=== PATIENT | female | born 1955 | race Caucasian/White ===

== ENCOUNTER 2017-09-05 06:11 | Inpatient (IN) | payer MEDICARE, OTHER ==
[2017-09-05] MEDS ORDERED: OCTREOTIDE 50 MCG in SOD CHLORIDE 0.9% 25 ML IVPB (06:17)
[2017-09-05] MEDS: PANTOPRAZOLE IV 80 MG in SOD CHLORIDE 0.9% 100 ML IVPB (06:17)
[2017-09-05 06:42] LABS: ADD MAN DIFF? NO
[2017-09-05 06:52] LABS: OCCULT BLOOD STOOL NEGATIVE (NEGATIVE)
[2017-09-05] MEDS: SOD CHLORIDE 0.9% 1,000 ML IV (06:52)
[2017-09-05 07:04] LABS: WHITE BLOOD COUNT 19.1 10^3/ul (4.8-10.8)
[2017-09-05 07:04] LABS: BASOPHIL # 0.1 10^3/ul (0.0-0.1); BASOPHILS % 0.5 % (0.0-2.0); EOSINOPHILS # 0.4 10^3/ul (0.0-0.5); HEMATOCRIT 37.7 % (37.0-47.0); HEMOGLOBIN 13.1 g/dl (12.0-16.0); LYMPHOCYTES # 3.6 10^3/ul (0.8-2.9); MEAN CORPUSCULAR HEMOGLOBIN 32.3 pg (29.0-33.0); MEAN CORPUSCULAR HGB CONC 34.7 g/dl (32.0-37.0); MEAN CORPUSCULAR VOLUME 93.1 fl (82.0-101.0); MEAN PLATELET VOLUME 9.2 fl (7.4-10.4); MONOCYTE # 1.1 10^3/ul (0.3-0.9); MONOCYTES % 5.5 % (0.0-11.0); NEUTROPHIL # 13.8 10^3/ul (1.6-7.5); NEUTROPHILS % 72.3 % (39.0-77.0); PLATELET COUNT 322 10^3/UL (140-415); RED BLOOD COUNT 4.05 10^6/ul (4.20-5.40); RED CELL DISTRIBUTION WIDTH 15.2 % (11.5-14.5)
[2017-09-05 07:13] LABS: INR 0.93; PROTIME 12.5 Sec (11.9-14.9)
[2017-09-05 07:14] LABS: PARTIAL THROMBOPLASTIN TIME 29.6 Sec (25.0-35.0)
[2017-09-05 07:18] LABS: ALANINE AMINOTRANSFERASE 35 IU/L (13-69); ALBUMIN 3.8 g/dl (3.3-4.9); ALBUMIN/GLOBULIN RATIO 1.02; ALKALINE PHOSPHATASE 106 IU/L (42-121); ANION GAP 15 (8-16); ASPARTATE AMINO TRANSFERASE 22 IU/L (15-46); BLOOD UREA NITROGEN 16 mg/dl (7-20); CALCIUM 8.5 mg/dl (8.4-10.2); CARBON DIOXIDE 16 mmol/L (21-31); CHLORIDE 116 mmol/L (97-110); GLUCOSE 142 mg/dl (70-220); SODIUM 144 mmol/L (135-144); TOTAL PROTEIN 7.5 g/dl (6.1-8.1)
[2017-09-05 07:21] LABS: POTASSIUM 2.6 mmol/L (3.5-5.1)
[2017-09-05] MEDS ORDERED: POTASSIUM CHLORIDE 50 ML IVPB (07:30)
[2017-09-05] MEDS: POTASSIUM CHLORIDE 20 MEQ POWDER FOR ORAL SOLN PO (07:30)
[2017-09-05 07:41] LABS: TROPONIN-I < 0.012 ng/ml (0.00-0.12)
[2017-09-05 08:13] LABS: LIPASE 71 U/L (23-300)
[2017-09-05] MEDS: SODIUM CHLORIDE 0.9% 1L BAG IV* (08:25)
[2017-09-05] MEDS ORDERED: POTASSIUM CHLORIDE 30 MEQ in SOD CHLORIDE 0.9% 150 ML IV (08:30)
[2017-09-05 08:32] LABS: MAGNESIUM 2.6 mg/dl (1.7-2.5)
[2017-09-05] MEDS: MAGNESIUM SULFATE 2 GM/50 ML 50 ML IVPB (08:32)
[2017-09-05 09:01] LABS: ACETAMINOPHEN < 10.0 ug/ml (10.0-30.0)
[2017-09-05 09:01] LABS: ETHANOL < 10.0 mg/dl; SALICYLATE < 1.0 mg/dl (5.0-30.0)
[2017-09-05 09:09] LABS: VALPROATE < 10 ug/ml (50-100)
[2017-09-05] MEDS: POTASSIUM CHLORIDE 30 MEQ in DEXTROSE 5% 250 ML IV (09:27)
[2017-09-05 09:45] LABS: ADD UMIC YES; UR ASCORBIC ACID NEGATIVE (NEGATIVE); UR BILIRUBIN (Dip) NEGATIVE (NEGATIVE); UR BLOOD (Dip) NEGATIVE (NEGATIVE); UR CLARITY CLEAR (CLEAR); UR COLOR YELLOW (YELLOW); UR GLUCOSE (Dip) NEGATIVE (NEGATIVE); UR KETONES (Dip) NEGATIVE (NEGATIVE); UR LEUKOCYTE ESTERASE (Dip) NEGATIVE Leu/ul (NEGATIVE); UR NITRITE (Dip) NEGATIVE (NEGATIVE); UR RBC 0 /HPF (0-5); UR SPECIFIC GRAVITY (Dip) 1.013 (1.003-1.030); UR TOTAL PROTEIN (Dip) 1+ mg/dl (NEGATIVE); UR UROBILINOGEN (Dip) NEGATIVE (NEGATIVE); UR WBC 0 /HPF (0-5)
[2017-09-05] MEDS ORDERED: ONDANSETRON 4 MG INJ IV ×3 (10:00→16:30)
[2017-09-05] MEDS ORDERED: ACETAMINOPHEN 325 MG TAB PO ×2 (10:00)
[2017-09-05] MEDS: PANTOPRAZOLE 40 MG INJ IV ×2 (10:00→17:13)
[2017-09-05 10:03] LABS: BARBITURATES Negative (NEGATIVE); BENZODIAZEPINES Positive (NEGATIVE)
[2017-09-05 10:05] LABS: AMPHETAMINE/METHAMPHETAMINE Negative (NEGATIVE); CANNABINOIDS Negative (NEGATIVE); COCAINE Negative (NEGATIVE); OPIATES Negative (NEGATIVE)
[2017-09-05] MEDS: D5W-0.45 NACL + KCL 20 MEQ 1,000 ML IV ×2 (15:48→17:49)
[2017-09-05] MEDS ORDERED: HYDROCODONE/APAP (5/325) TAB PO (16:30)
[2017-09-05] MEDS ORDERED: LORAZEPAM 2 MG INJ IV (16:30)
[2017-09-05] MEDS: DEXTROSE 5%-0.45% NACL 1,000 ML IV (16:30)
[2017-09-05 17:10] LABS: CREATINE KINASE 386 IU/L (23-200)
[2017-09-05 17:12] LABS: ANION GAP 14 (8-16); BLOOD UREA NITROGEN 11 mg/dl (7-20); CALCIUM 7.1 mg/dl (8.4-10.2); CARBON DIOXIDE 15 mmol/L (21-31); CHLORIDE 122 mmol/L (97-110); CREATININE 0.67 mg/dl (0.44-1.00); GLUCOSE 155 mg/dl (70-220); MAGNESIUM 2.7 mg/dl (1.7-2.5); PHOSPHORUS 1.5 mg/dl (2.5-4.9); POTASSIUM 3.2 mmol/L (3.5-5.1); SODIUM 148 mmol/L (135-144)
[2017-09-05 17:24] LABS: CK INDEX 0.7; CK-MB 2.57 ng/ml (0.0-2.4); TROPONIN-I < 0.012 ng/ml (0.00-0.12)
[2017-09-05] MEDS: morphine 2 MG INJ IV (22:01)
[2017-09-05 22:42] LABS: CREATINE KINASE 451 IU/L (23-200)
[2017-09-05 22:56] LABS: CK INDEX 0.5; CK-MB 2.47 ng/ml (0.0-2.4); TROPONIN-I < 0.012 ng/ml (0.00-0.12)
[2017-09-06] MEDS: D5W-0.45 NACL + KCL 20 MEQ 1,000 ML IV ×4 (01:05→21:17)
[2017-09-06] MEDS: morphine 2 MG INJ IV ×4 (01:47→21:13)
[2017-09-06] MEDS: DEXTROSE 5%-0.45% NACL 1,000 ML IV ×2 (01:50→12:23)
[2017-09-06] MEDS: PANTOPRAZOLE 40 MG INJ IV ×2 (05:46→17:15)
[2017-09-06 06:58] LABS: ALANINE AMINOTRANSFERASE 37 IU/L (13-69); ALBUMIN/GLOBULIN RATIO 1.07; ALKALINE PHOSPHATASE 88 IU/L (42-121); ANION GAP 13 (8-16); ASPARTATE AMINO TRANSFERASE 26 IU/L (15-46); BILIRUBIN,INDIRECT 0.1 mg/dl (0-1.1); BILIRUBIN,TOTAL 0.1 mg/dl (0.2-1.3); BLOOD UREA NITROGEN 6 mg/dl (7-20); CARBON DIOXIDE 14 mmol/L (21-31); CHLORIDE 123 mmol/L (97-110); CHOL/HDL RATIO 2.3 RATIO; CHOLESTEROL 134 mg/dl (100-200); CREATININE 0.63 mg/dl (0.44-1.00); GLUCOSE 104 mg/dl (70-220); HDL CHOLESTEROL 57 mg/dl (35-98); LDL CHOLESTEROL,CALCULATED 62 mg/dl; MAGNESIUM 2.6 mg/dl (1.7-2.5); SODIUM 147 mmol/L (135-144); TOTAL PROTEIN 5.8 g/dl (6.1-8.1); TRIGLYCERIDES 73 mg/dl (0-149)
[2017-09-06 07:09] LABS: POTASSIUM 2.6 mmol/L (3.5-5.1)
[2017-09-06 08:09] LABS: ABNORMAL IP MESSAGE 1; HEMATOCRIT 32.4 % (37.0-47.0); HEMOGLOBIN 11.2 g/dl (12.0-16.0); MEAN CORPUSCULAR HEMOGLOBIN 32.5 pg (29.0-33.0); MEAN CORPUSCULAR HGB CONC 34.6 g/dl (32.0-37.0); MEAN CORPUSCULAR VOLUME 93.9 fl (82.0-101.0); MEAN PLATELET VOLUME 9.5 fl (7.4-10.4); PLATELET COUNT 290 10^3/UL (140-415); RED BLOOD COUNT 3.45 10^6/ul (4.20-5.40); RED CELL DISTRIBUTION WIDTH 15.9 % (11.5-14.5)
[2017-09-06 08:09] LABS: WHITE BLOOD COUNT 27.5 10^3/ul (4.8-10.8)
[2017-09-06 08:12] LABS: ADD MAN DIFF? YES; POSITIVE DIFF @See below
[2017-09-06 09:59] LABS: HEMOGLOBIN A1C 5.1 % (0-5.9)
[2017-09-06 10:03] LABS: ANISOCYTOSIS 1+ (0-0); BAND NEUTROPHILS #M 1.3 10^3/ul (0.0-0.6); BAND NEUTROPHILS % (M) 5 % (0-4); EOSINOPHILS # 0.3 10^3/ul (0.0-0.5); EOSINOPHILS % (M) 1 % (0.0-7.0); LYMPHOCYTES # 8.5 10^3/ul (0.8-2.9); LYMPHOCYTES #M 8.5 10^3/ul (0.8-2.9); LYMPHOCYTES % (M) 31 % (15-51); MONOCYTE # 1.4 10^3/ul (0.3-0.9); MONOCYTE #M 1.3 10^3/ul (0.3-0.9); MONOCYTES % (M) 5 % (0-11); SEG NEUT #M 16.3 10^3/ul (1.7-7.5); SEGMENTED NEUTROPHILS (M) % 58 % (39-77)
[2017-09-06] MEDS: POTASSIUM CHLORIDE (SR) 20 MEQ TAB PO (11:30)
[2017-09-06] MEDS: POTASSIUM CHLORIDE 100 ML IVPB ×3 (12:20→17:15)
[2017-09-06 15:59] LABS: ANION GAP 13 (8-16); BLOOD UREA NITROGEN 5 mg/dl (7-20); CALCIUM 7.2 mg/dl (8.4-10.2); CARBON DIOXIDE 16 mmol/L (21-31); CHLORIDE 121 mmol/L (97-110); CREATININE 0.59 mg/dl (0.44-1.00); GLUCOSE 123 mg/dl (70-220); POTASSIUM 4.1 mmol/L (3.5-5.1); SODIUM 146 mmol/L (135-144)
[2017-09-06] MEDS: PHENYTOIN 100 MG CAP PO ×2 (16:04→20:19)
[2017-09-06 16:33] LABS: IONIZED CALCIUM 1.1 mmol/L (1.1-1.4)
[2017-09-06 17:32] LABS: HEPATITIS B SURFACE ANTIGEN NEGATIVE (NEGATIVE)
[2017-09-06 18:00] LABS: HEPATITIS C VIRAL ANTIBODY REACTIVE (NEGATIVE)
[2017-09-06] MEDS: GABAPENTIN 300 MG CAP PO (20:20)
[2017-09-06] MEDS: ALPRAZOLAM 1 MG TAB PO (20:20)
[2017-09-06] MEDS: QUETIAPINE 100 MG TAB PO (20:20)
[2017-09-06] MEDS ORDERED: SERTRALINE 100 MG TAB PO (21:00)
[2017-09-06] MEDS: SERTRALINE 100 MG TAB PO (21:12)
[2017-09-06 22:11] LABS: RAPID PLASMA REAGIN NONREACTIVE (NR)
[2017-09-07] MEDS: PANTOPRAZOLE 40 MG INJ IV ×2 (05:32→17:58)
[2017-09-07] MEDS: D5W-0.45 NACL + KCL 20 MEQ 1,000 ML IV ×3 (06:20→16:53)
[2017-09-07 07:18] LABS: WHITE BLOOD COUNT 16.4 10^3/ul (4.8-10.8)
[2017-09-07 07:18] LABS: ADD MAN DIFF? NO; BASOPHIL # 0.1 10^3/ul (0.0-0.1); BASOPHILS % 0.5 % (0.0-2.0); EOSINOPHILS # 0.5 10^3/ul (0.0-0.5); EOSINOPHILS % 3.1 % (0.0-7.0); HEMOGLOBIN 10.9 g/dl (12.0-16.0); LYMPHOCYTES % 24.3 % (15.0-51.0); MEAN CORPUSCULAR HEMOGLOBIN 32.6 pg (29.0-33.0); MEAN CORPUSCULAR HGB CONC 34.1 g/dl (32.0-37.0); MEAN CORPUSCULAR VOLUME 95.8 fl (82.0-101.0); MEAN PLATELET VOLUME 9.3 fl (7.4-10.4); MONOCYTE # 1.3 10^3/ul (0.3-0.9); MONOCYTES % 8.1 % (0.0-11.0); NEUTROPHIL # 10.4 10^3/ul (1.6-7.5); NEUTROPHILS % 63.6 % (39.0-77.0); PLATELET COUNT 270 10^3/UL (140-415); RED BLOOD COUNT 3.34 10^6/ul (4.20-5.40); RED CELL DISTRIBUTION WIDTH 15.9 % (11.5-14.5)
[2017-09-07 07:31] LABS: ALANINE AMINOTRANSFERASE 32 IU/L (13-69); ALBUMIN 2.7 g/dl (3.3-4.9); ALBUMIN/GLOBULIN RATIO 0.84; ALKALINE PHOSPHATASE 77 IU/L (42-121); ANION GAP 13 (8-16); ASPARTATE AMINO TRANSFERASE 20 IU/L (15-46); BILIRUBIN,INDIRECT 0.1 mg/dl (0-1.1); BILIRUBIN,TOTAL 0.1 mg/dl (0.2-1.3); BLOOD UREA NITROGEN 4 mg/dl (7-20); CALCIUM 6.8 mg/dl (8.4-10.2); CARBON DIOXIDE 13 mmol/L (21-31); CHLORIDE 124 mmol/L (97-110); CREATININE 0.58 mg/dl (0.44-1.00); GLUCOSE 106 mg/dl (70-220); POTASSIUM 3.3 mmol/L (3.5-5.1); SODIUM 147 mmol/L (135-144); TOTAL PROTEIN 5.9 g/dl (6.1-8.1)
[2017-09-07] MEDS: GABAPENTIN 300 MG CAP PO ×3 (08:51→21:24)
[2017-09-07] MEDS: QUETIAPINE 100 MG TAB PO ×2 (08:51→21:24)
[2017-09-07] MEDS: PHENYTOIN 100 MG CAP PO ×3 (08:51→21:24)
[2017-09-07] MEDS: SERTRALINE 100 MG TAB PO ×2 (08:51→21:24)
[2017-09-07] MEDS: POTASSIUM CHLORIDE (SR) 20 MEQ TAB PO ×2 (11:53→15:34)
[2017-09-07] MEDS: CALCIUM CARBONATE 750 MG CHEW TAB PO ×2 (12:58→18:22)
[2017-09-07] MEDS: morphine 2 MG INJ IV ×2 (13:04→21:25)
[2017-09-07] MEDS: HYDROCODONE/APAP (5/325) TAB PO (18:29)
[2017-09-07] MEDS: ALPRAZOLAM 1 MG TAB PO (21:24)
[2017-09-08] MEDS: D5W-0.45 NACL + KCL 20 MEQ 1,000 ML IV ×2 (02:04→09:55)
[2017-09-08] MEDS: morphine 2 MG INJ IV (05:54)
[2017-09-08] MEDS: PANTOPRAZOLE 40 MG INJ IV ×2 (05:54→17:31)
[2017-09-08 06:29] LABS: ADD MAN DIFF? NO
[2017-09-08 06:35] LABS: BASOPHIL # 0.1 10^3/ul (0.0-0.1); BASOPHILS % 0.6 % (0.0-2.0); EOSINOPHILS # 0.5 10^3/ul (0.0-0.5); EOSINOPHILS % 2.7 % (0.0-7.0); HEMOGLOBIN 11.3 g/dl (12.0-16.0); LYMPHOCYTES # 2.8 10^3/ul (0.8-2.9); LYMPHOCYTES % 16.3 % (15.0-51.0); MEAN CORPUSCULAR HEMOGLOBIN 32.3 pg (29.0-33.0); MEAN CORPUSCULAR HGB CONC 33.2 g/dl (32.0-37.0); MEAN CORPUSCULAR VOLUME 97.1 fl (82.0-101.0); MEAN PLATELET VOLUME 9.1 fl (7.4-10.4); MONOCYTE # 1.3 10^3/ul (0.3-0.9); MONOCYTES % 7.5 % (0.0-11.0); NEUTROPHIL # 12.4 10^3/ul (1.6-7.5); NEUTROPHILS % 72.4 % (39.0-77.0); PLATELET COUNT 290 10^3/UL (140-415); RED CELL DISTRIBUTION WIDTH 15.9 % (11.5-14.5)
[2017-09-08 06:35] LABS: WHITE BLOOD COUNT 17.1 10^3/ul (4.8-10.8)
[2017-09-08 07:01] LABS: PHENYTOIN (DILANTIN) 4.4 ug/ml (10.0-20.0)
[2017-09-08 07:44] LABS: ALANINE AMINOTRANSFERASE 33 IU/L (13-69); ALBUMIN 3.4 g/dl (3.3-4.9); ALKALINE PHOSPHATASE 100 IU/L (42-121); ANION GAP 14 (8-16); ASPARTATE AMINO TRANSFERASE 22 IU/L (15-46); BILIRUBIN,INDIRECT 0.1 mg/dl (0-1.1); BILIRUBIN,TOTAL 0.1 mg/dl (0.2-1.3); BLOOD UREA NITROGEN 3 mg/dl (7-20); CALCIUM 7.2 mg/dl (8.4-10.2); CARBON DIOXIDE 14 mmol/L (21-31); CHLORIDE 123 mmol/L (97-110); CREATININE 0.56 mg/dl (0.44-1.00); GLUCOSE 102 mg/dl (70-220); POTASSIUM 3.9 mmol/L (3.5-5.1); SODIUM 147 mmol/L (135-144); TOTAL PROTEIN 6.8 g/dl (6.1-8.1)
[2017-09-08] MEDS: QUETIAPINE 100 MG TAB PO ×2 (08:54→20:48)
[2017-09-08] MEDS: CALCIUM CARBONATE 750 MG CHEW TAB PO ×3 (08:54→17:35)
[2017-09-08] MEDS: SERTRALINE 100 MG TAB PO ×2 (08:54→20:48)
[2017-09-08] MEDS: PHENYTOIN 100 MG CAP PO ×3 (08:54→20:48)
[2017-09-08] MEDS: GABAPENTIN 300 MG CAP PO ×3 (08:54→20:48)
[2017-09-08] MEDS ORDERED: ALPRAZOLAM 1 MG TAB PO (11:30)
[2017-09-08] MEDS: IBUPROFEN 400 MG TAB PO ×2 (15:10→20:48)
[2017-09-08] MEDS: DEXTROSE 5% 1,000 ML IV (17:29)
[2017-09-09] MEDS: DEXTROSE 5% 1,000 ML IV (04:47)
[2017-09-09] MEDS: PANTOPRAZOLE 40 MG INJ IV (04:47)
[2017-09-09] MEDS: SERTRALINE 100 MG TAB PO (08:24)
[2017-09-09] MEDS: CALCIUM CARBONATE 750 MG CHEW TAB PO (08:24)
[2017-09-09] MEDS: PHENYTOIN 100 MG CAP PO (08:24)
[2017-09-09] MEDS: GABAPENTIN 300 MG CAP PO (08:24)
[2017-09-09] MEDS: QUETIAPINE 100 MG TAB PO (08:31)
[2017-09-09 11:09] LABS: ADD MAN DIFF? NO
[2017-09-09 11:13] LABS: WHITE BLOOD COUNT 17.1 10^3/ul (4.8-10.8)
[2017-09-09 11:13] LABS: BASOPHIL # 0.1 10^3/ul (0.0-0.1); BASOPHILS % 0.6 % (0.0-2.0); EOSINOPHILS # 0.6 10^3/ul (0.0-0.5); EOSINOPHILS % 3.4 % (0.0-7.0); HEMATOCRIT 38.1 % (37.0-47.0); HEMOGLOBIN 12.4 g/dl (12.0-16.0); LYMPHOCYTES # 2.3 10^3/ul (0.8-2.9); LYMPHOCYTES % 13.4 % (15.0-51.0); MEAN CORPUSCULAR HEMOGLOBIN 32.4 pg (29.0-33.0); MEAN CORPUSCULAR HGB CONC 32.5 g/dl (32.0-37.0); MEAN CORPUSCULAR VOLUME 99.5 fl (82.0-101.0); MEAN PLATELET VOLUME 8.9 fl (7.4-10.4); MONOCYTES % 5.7 % (0.0-11.0); NEUTROPHIL # 13.1 10^3/ul (1.6-7.5); NEUTROPHILS % 76.4 % (39.0-77.0); PLATELET COUNT 361 10^3/UL (140-415); RED BLOOD COUNT 3.83 10^6/ul (4.20-5.40); RED CELL DISTRIBUTION WIDTH 15.4 % (11.5-14.5)
[2017-09-09 11:36] LABS: ANION GAP 16 (8-16); BLOOD UREA NITROGEN 4 mg/dl (7-20); CALCIUM 8.3 mg/dl (8.4-10.2); CARBON DIOXIDE 17 mmol/L (21-31); CHLORIDE 121 mmol/L (97-110); GLUCOSE 162 mg/dl (70-220); MAGNESIUM 2.5 mg/dl (1.7-2.5); PHOSPHORUS 1.8 mg/dl (2.5-4.9); SODIUM 150 mmol/L (135-144)
[2017-09-09 18:57] LABS: PTH CALCIUM 6.5 mg/dL (8.6-10.4)
[2017-09-10 08:31] LABS: PTH INTACT 157 pg/mL (14-64)
== END 2017-09-09 12:18 | disposition home or self-care (01) | DRG 377 ==
LOC: MS4 12:29 → E/R 06:11 → MS4 09:55
DX: K92.0 Hematemesis (principal); G92 Toxic encephalopathy; E87.2 Acidosis; E83.51 Hypocalcemia; E87.6 Hypokalemia; F17.200 Nicotine dependence, unspecified, uncomplicated; G40.909 Epilepsy, unspecified, not intractable, without status epilepticus; J44.9 Chronic obstructive pulmonary disease, unspecified; S20.212A Contusion of left front wall of thorax, initial encounter; T40.4X5A Adverse effect of other synthetic narcotics, initial encounter; W18.30XA Fall on same level, unspecified, initial encounter
CPT/HCPCS: 36415; 70450; 70486; 71045; 80048; 80053; 80061; 80164; 80185; 80306; 80307; 81001; 82270; 82306; 82330; 82550; 82553; 82962; 83036; 83605; 83690; 83735; 83970; 84100; 84484; 85025; 85610; 85730; 86592; 86803; 86850; 86900; 86901; 87040; 87086; 87340; 93005; 95819; 96374; 96375; 97110; 97116; 97163; 97530; 99291-25

== ENCOUNTER 2017-09-16 11:30 | Inpatient (IN) | payer MEDICARE, OTHER ==
[2017-09-16 12:12] LABS: ADD MAN DIFF? NO
[2017-09-16 12:16] LABS: WHITE BLOOD COUNT 20.1 10^3/ul (4.8-10.8)
[2017-09-16 12:16] LABS: BASOPHIL # 0.1 10^3/ul (0.0-0.1); BASOPHILS % 0.6 % (0.0-2.0); EOSINOPHILS # 0.1 10^3/ul (0.0-0.5); EOSINOPHILS % 0.3 % (0.0-7.0); HEMATOCRIT 41.7 % (37.0-47.0); LYMPHOCYTES # 2.9 10^3/ul (0.8-2.9); LYMPHOCYTES % 14.3 % (15.0-51.0); MEAN CORPUSCULAR HGB CONC 33.6 g/dl (32.0-37.0); MEAN CORPUSCULAR VOLUME 95.4 fl (82.0-101.0); MEAN PLATELET VOLUME 8.2 fl (7.4-10.4); MONOCYTE # 0.7 10^3/ul (0.3-0.9); MONOCYTES % 3.5 % (0.0-11.0); NEUTROPHILS % 79.9 % (39.0-77.0); PLATELET COUNT 878 10^3/UL (140-415); RED BLOOD COUNT 4.37 10^6/ul (4.20-5.40); RED CELL DISTRIBUTION WIDTH 15.2 % (11.5-14.5)
[2017-09-16] MEDS: SOD CHLORIDE 0.9% 1,000 ML IV ×3 (12:17→20:39)
[2017-09-16 12:41] LABS: ALANINE AMINOTRANSFERASE 43 IU/L (13-69); ALBUMIN 4.4 g/dl (3.3-4.9); ALBUMIN/GLOBULIN RATIO 0.83; ALKALINE PHOSPHATASE 169 IU/L (42-121); ANION GAP 25 (8-16); ASPARTATE AMINO TRANSFERASE 42 IU/L (15-46); BLOOD UREA NITROGEN 13 mg/dl (7-20); CALCIUM 9.4 mg/dl (8.4-10.2); CARBON DIOXIDE 12 mmol/L (21-31); CHLORIDE 114 mmol/L (97-110); CREATININE 0.72 mg/dl (0.44-1.00); GLUCOSE 120 mg/dl (70-220); LIPASE 104 U/L (23-300); POTASSIUM 3.5 mmol/L (3.5-5.1); SODIUM 147 mmol/L (135-144); TOTAL PROTEIN 9.7 g/dl (6.1-8.1)
[2017-09-16 12:57] LABS: ANISOCYTOSIS 1+ (0-0); BAND NEUTROPHILS % (M) 5 % (0-4); EOSINOPHILS % (M) 1 % (0-7); LYMPHOCYTES #M 2.6 10^3/ul (0.8-2.9); LYMPHOCYTES % (M) 13 % (15-51); MONOCYTE #M 0.4 10^3/ul (0.3-0.9); MONOCYTES % (M) 2 % (0-11); PLATELET ESTIMATE INCREASED; PLATELET MORPHOLOGY COMMENT @See below; POLYCHROMASIA 1+ (0-0); SEG NEUT #M 16.1 10^3/ul (1.6-7.5); SEGMENTED NEUTROPHILS (M) % 79 % (39-77)
[2017-09-16] MEDS: ONDANSETRON 4 MG INJ IV ×2 (13:07→18:56)
[2017-09-16] MEDS: PHENYTOIN 500 MG in SOD CHLORIDE 0.9% 100 ML IV (13:10)
[2017-09-16 14:20] LABS: ADD UMIC YES; UR ASCORBIC ACID NEGATIVE (NEGATIVE); UR BACTERIA FEW /HPF (NONE SEEN); UR BILIRUBIN (Dip) NEGATIVE (NEGATIVE); UR BLOOD (Dip) NEGATIVE (NEGATIVE); UR CLARITY CLEAR (CLEAR); UR COLOR YELLOW (YELLOW); UR GLUCOSE (Dip) NEGATIVE (NEGATIVE); UR KETONES (Dip) 2+ mg/dL (NEGATIVE); UR LEUKOCYTE ESTERASE (Dip) NEGATIVE Leu/ul (NEGATIVE); UR NITRITE (Dip) NEGATIVE (NEGATIVE); UR RBC 1 /HPF (0-5); UR SPECIFIC GRAVITY (Dip) 1.013 (1.003-1.030); UR TOTAL PROTEIN (Dip) 1+ mg/dl (NEGATIVE); UR UROBILINOGEN (Dip) NEGATIVE (NEGATIVE); UR WBC 3 /HPF (0-5)
[2017-09-16] MEDS: LORAZEPAM 2 MG INJ IV (14:44)
[2017-09-16] MEDS: METOCLOPRAMIDE 10 MG INJ IV (15:24)
[2017-09-16] MEDS ORDERED: ONDANSETRON 4 MG INJ IV (15:30)
[2017-09-16] MEDS ORDERED: ACETAMINOPHEN 325 MG TAB PO (15:30)
[2017-09-16] MEDS ORDERED: NACL 0.9% 3 ML SYG IV (16:30)
[2017-09-16] MEDS ORDERED: clonAZEPAM 0.5 MG TAB PO (16:30)
[2017-09-16] MEDS ORDERED: ALBUTEROL 0.083% (NEB) 2.5 MG/3 ML AMP HHN (17:00)
[2017-09-16 17:38] LABS: PHENYTOIN (DILANTIN) 12.1 ug/ml (10.0-20.0)
[2017-09-16 17:55] LABS: FREE T4 (FREE THYROXINE) 0.83 ng/dl (0.78-2.44)
[2017-09-16 20:28] LABS: AMPHETAMINE/METHAMPHETAMINE Negative (NEGATIVE); BARBITURATES Negative (NEGATIVE); CANNABINOIDS Negative (NEGATIVE); COCAINE Negative (NEGATIVE); OPIATES Negative (NEGATIVE)
[2017-09-16 20:39] LABS: BENZODIAZEPINES Positive (NEGATIVE)
[2017-09-16] MEDS: GABAPENTIN 300 MG CAP PO (20:39)
[2017-09-16] MEDS: PHENYTOIN 100 MG CAP PO (20:40)
[2017-09-16] MEDS: SERTRALINE 100 MG TAB PO (20:40)
[2017-09-16 21:24] LABS: HEMOGLOBIN A1C 4.9 % (0-5.9)
[2017-09-16] MEDS: QUETIAPINE 100 MG TAB PO (21:24)
[2017-09-17] MEDS: SOD CHLORIDE 0.9% 1,000 ML IV ×2 (04:30→08:49)
[2017-09-17 04:55] LABS: ADD MAN DIFF? NO
[2017-09-17 04:59] LABS: BASOPHIL # 0.1 10^3/ul (0.0-0.1); BASOPHILS % 0.6 % (0.0-2.0); EOSINOPHILS # 0.3 10^3/ul (0.0-0.5); EOSINOPHILS % 2.3 % (0.0-7.0); HEMATOCRIT 32.1 % (37.0-47.0); HEMOGLOBIN 10.5 g/dl (12.0-16.0); LYMPHOCYTES # 4.6 10^3/ul (0.8-2.9); LYMPHOCYTES % 30.9 % (15.0-51.0); MEAN CORPUSCULAR HEMOGLOBIN 32.2 pg (29.0-33.0); MEAN CORPUSCULAR HGB CONC 32.7 g/dl (32.0-37.0); MEAN CORPUSCULAR VOLUME 98.5 fl (82.0-101.0); MEAN PLATELET VOLUME 8.3 fl (7.4-10.4); MONOCYTES % 7.1 % (0.0-11.0); NEUTROPHIL # 8.6 10^3/ul (1.6-7.5); NEUTROPHILS % 58.1 % (39.0-77.0); PLATELET COUNT 630 10^3/UL (140-415); RED BLOOD COUNT 3.26 10^6/ul (4.20-5.40); RED CELL DISTRIBUTION WIDTH 15.7 % (11.5-14.5)
[2017-09-17 04:59] LABS: WHITE BLOOD COUNT 14.7 10^3/ul (4.8-10.8)
[2017-09-17 05:16] LABS: CHOL/HDL RATIO 5.5 RATIO; CHOLESTEROL 171 mg/dl (100-200); HDL CHOLESTEROL 31 mg/dl (35-98); LDL CHOLESTEROL,CALCULATED 114 mg/dl; MAGNESIUM 2.2 mg/dl (1.7-2.5); TRIGLYCERIDES 129 mg/dl (0-149)
[2017-09-17 05:16] LABS: PHOSPHORUS 2.2 mg/dl (2.5-4.9)
[2017-09-17 05:18] LABS: ALANINE AMINOTRANSFERASE 49 IU/L (13-69); ALBUMIN/GLOBULIN RATIO 0.85; ALKALINE PHOSPHATASE 94 IU/L (42-121); AMYLASE 44 U/L (11-123); ANION GAP 14 (8-16); ASPARTATE AMINO TRANSFERASE 37 IU/L (15-46); BLOOD UREA NITROGEN 7 mg/dl (7-20); CALCIUM 7.1 mg/dl (8.4-10.2); CARBON DIOXIDE 16 mmol/L (21-31); CHLORIDE 123 mmol/L (97-110); CREATININE 0.61 mg/dl (0.44-1.00); GLUCOSE 75 mg/dl (70-220); LIPASE 86 U/L (23-300); POTASSIUM 3.1 mmol/L (3.5-5.1); SODIUM 150 mmol/L (135-144); TOTAL PROTEIN 6.5 g/dl (6.1-8.1)
[2017-09-17 05:26] LABS: INR 1.09; PROTIME 14.2 Sec (11.9-14.9); PT RATIO 1.1
[2017-09-17 05:27] LABS: PARTIAL THROMBOPLASTIN TIME 30.9 Sec (25.0-35.0)
[2017-09-17 05:34] LABS: POSITIVE DIFF @See below
[2017-09-17] MEDS: PANTOPRAZOLE 40 MG INJ IV (06:05)
[2017-09-17] MEDS: SERTRALINE 100 MG TAB PO ×3 (08:48→20:35)
[2017-09-17] MEDS: QUETIAPINE 100 MG TAB PO ×2 (08:48→20:35)
[2017-09-17] MEDS: PHENYTOIN 100 MG CAP PO ×3 (08:49→20:34)
[2017-09-17] MEDS: GABAPENTIN 300 MG CAP PO ×3 (08:49→20:33)
[2017-09-17] MEDS: ACETAMINOPHEN 325 MG TAB PO ×2 (08:49→18:45)
[2017-09-17] MEDS: POTASSIUM PHOSPHATE 15 MM in SOD CHLORIDE 0.9% 250 ML IVPB (11:56)
[2017-09-17] MEDS: traMADol 50 MG TAB PO (13:41)
[2017-09-17] MEDS: SOD CHLORIDE 0.45% 1,000 ML IV ×2 (13:41→22:13)
[2017-09-17] MEDS: ONDANSETRON 4 MG INJ IV (18:41)
[2017-09-17] MEDS: clonAZEPAM 0.5 MG TAB PO (22:10)
[2017-09-18 05:52] LABS: ADD MAN DIFF? NO
[2017-09-18 06:03] LABS: WHITE BLOOD COUNT 14.1 10^3/ul (4.8-10.8)
[2017-09-18 06:03] LABS: BASOPHIL # 0.1 10^3/ul (0.0-0.1); BASOPHILS % 0.7 % (0.0-2.0); EOSINOPHILS # 0.4 10^3/ul (0.0-0.5); EOSINOPHILS % 2.5 % (0.0-7.0); HEMATOCRIT 32.8 % (37.0-47.0); HEMOGLOBIN 10.9 g/dl (12.0-16.0); LYMPHOCYTES # 3.5 10^3/ul (0.8-2.9); LYMPHOCYTES % 24.6 % (15.0-51.0); MEAN CORPUSCULAR HEMOGLOBIN 31.9 pg (29.0-33.0); MEAN CORPUSCULAR HGB CONC 33.2 g/dl (32.0-37.0); MEAN CORPUSCULAR VOLUME 95.9 fl (82.0-101.0); MEAN PLATELET VOLUME 8.3 fl (7.4-10.4); MONOCYTE # 1.2 10^3/ul (0.3-0.9); MONOCYTES % 8.4 % (0.0-11.0); NEUTROPHIL # 8.9 10^3/ul (1.6-7.5); NEUTROPHILS % 63.2 % (39.0-77.0); PLATELET COUNT 565 10^3/UL (140-415); RED BLOOD COUNT 3.42 10^6/ul (4.20-5.40); RED CELL DISTRIBUTION WIDTH 15.4 % (11.5-14.5)
[2017-09-18] MEDS: PANTOPRAZOLE 40 MG INJ IV ×2 (06:05→17:47)
[2017-09-18 06:59] LABS: MAGNESIUM 2.1 mg/dl (1.7-2.5)
[2017-09-18 06:59] LABS: PHOSPHORUS 1.9 mg/dl (2.5-4.9)
[2017-09-18 07:00] LABS: ALANINE AMINOTRANSFERASE 48 IU/L (13-69); ALBUMIN 2.9 g/dl (3.3-4.9); ALBUMIN/GLOBULIN RATIO 0.82; ALKALINE PHOSPHATASE 101 IU/L (42-121); ANION GAP 15 (8-16); ASPARTATE AMINO TRANSFERASE 29 IU/L (15-46); BLOOD UREA NITROGEN 3 mg/dl (7-20); CARBON DIOXIDE 15 mmol/L (21-31); CHLORIDE 119 mmol/L (97-110); CREATININE 0.53 mg/dl (0.44-1.00); GLUCOSE 101 mg/dl (70-220); SODIUM 146 mmol/L (135-144); TOTAL PROTEIN 6.4 g/dl (6.1-8.1)
[2017-09-18 07:03] LABS: POTASSIUM 2.6 mmol/L (3.5-5.1)
[2017-09-18] MEDS: GABAPENTIN 300 MG CAP PO ×3 (09:00→21:51)
[2017-09-18] MEDS: SOD CHLORIDE 0.45% 1,000 ML IV ×2 (09:00→12:26)
[2017-09-18] MEDS: POTASSIUM CHLORIDE 100 ML IVPB ×3 (09:08→13:00)
[2017-09-18] MEDS: clonAZEPAM 0.5 MG TAB PO ×2 (09:08→21:51)
[2017-09-18] MEDS: QUETIAPINE 100 MG TAB PO ×2 (09:09→21:52)
[2017-09-18] MEDS: PHENYTOIN 100 MG CAP PO ×3 (09:09→21:50)
[2017-09-18] MEDS: SERTRALINE 100 MG TAB PO ×3 (09:09→21:52)
[2017-09-18] MEDS: ONDANSETRON 4 MG INJ IV ×3 (09:20→22:03)
[2017-09-18] MEDS: INFLUENZA VIRUS VACCINE 0.5 ML SYG IM* (09:20)
[2017-09-18 12:52] LABS: POTASSIUM 4.3 mmol/L (3.5-5.1)
[2017-09-18] MEDS: MIDAZOLAM 1 MG/ML 2 ML INJ (15:28)
[2017-09-18] MEDS: PROPOFOL 20 ML (15:28)
[2017-09-18] MEDS: LIDOCAINE 2% (SDV) 5 ML INJ (15:28)
[2017-09-18] MEDS: LORAZEPAM 2 MG INJ IV (22:03)
[2017-09-19] MEDS: SOD CHLORIDE 0.45% 1,000 ML IV (02:45)
[2017-09-19] MEDS: PANTOPRAZOLE 40 MG INJ IV ×2 (04:52→17:30)
[2017-09-19 08:00] LABS: WHITE BLOOD COUNT 10.6 10^3/ul (4.8-10.8)
[2017-09-19 08:00] LABS: HEMATOCRIT 33.6 % (37.0-47.0); HEMOGLOBIN 11.3 g/dl (12.0-16.0); MEAN CORPUSCULAR HEMOGLOBIN 32.5 pg (29.0-33.0); MEAN CORPUSCULAR HGB CONC 33.6 g/dl (32.0-37.0); MEAN CORPUSCULAR VOLUME 96.6 fl (82.0-101.0); MEAN PLATELET VOLUME 8.4 fl (7.4-10.4); PLATELET COUNT 565 10^3/UL (140-415); RED BLOOD COUNT 3.48 10^6/ul (4.20-5.40); RED CELL DISTRIBUTION WIDTH 15.7 % (11.5-14.5)
[2017-09-19 08:08] LABS: ADD MAN DIFF? YES; POSITIVE DIFF @See below
[2017-09-19 08:22] LABS: ALANINE AMINOTRANSFERASE 34 IU/L (13-69); ALBUMIN 3.1 g/dl (3.3-4.9); ALBUMIN/GLOBULIN RATIO 0.86; ALKALINE PHOSPHATASE 109 IU/L (42-121); ANION GAP 14 (8-16); ASPARTATE AMINO TRANSFERASE 19 IU/L (15-46); BLOOD UREA NITROGEN 3 mg/dl (7-20); CALCIUM 7.4 mg/dl (8.4-10.2); CARBON DIOXIDE 15 mmol/L (21-31); CHLORIDE 121 mmol/L (97-110); GLUCOSE 96 mg/dl (70-220); MAGNESIUM 2.2 mg/dl (1.7-2.5); POTASSIUM 3.1 mmol/L (3.5-5.1); SODIUM 147 mmol/L (135-144); TOTAL PROTEIN 6.7 g/dl (6.1-8.1)
[2017-09-19] MEDS: GABAPENTIN 300 MG CAP PO ×3 (09:04→20:56)
[2017-09-19] MEDS: SERTRALINE 100 MG TAB PO ×3 (09:04→20:56)
[2017-09-19] MEDS: PHENYTOIN 100 MG CAP PO ×3 (09:04→20:56)
[2017-09-19] MEDS: clonAZEPAM 0.5 MG TAB PO ×2 (09:04→20:55)
[2017-09-19] MEDS: QUETIAPINE 100 MG TAB PO ×2 (09:05→20:56)
[2017-09-19] MEDS: ONDANSETRON 4 MG INJ IV ×2 (09:06→15:28)
[2017-09-19 09:45] LABS: ANISOCYTOSIS 1+ (0-0); BAND NEUTROPHILS #M 0.1 10^3/ul (0.0-0.6); BAND NEUTROPHILS % (M) 1 % (0-4); EOSINOPHILS % (M) 4 % (0-7); LYMPHOCYTES #M 4.9 10^3/ul (0.8-2.9); LYMPHOCYTES % (M) 47 % (15-51); MONOCYTE #M 0.5 10^3/ul (0.3-0.9); MONOCYTES % (M) 5 % (0-11); PLATELET ESTIMATE INCREASED; POLYCHROMASIA 1+ (0-0); SEG NEUT #M 4.7 10^3/ul (1.6-7.5); SEGMENTED NEUTROPHILS (M) % 44 % (39-77); SMUDGE%M 1 % (0-0)
[2017-09-19] MEDS: FENTAnyl PATCH 50 MCG/HR TRANSDERM (14:15)
[2017-09-19] MEDS: POTASSIUM PHOSPHATE 15 MM in SOD CHLORIDE 0.9% 250 ML IVPB (15:30)
[2017-09-20] MEDS: PANTOPRAZOLE 40 MG INJ IV ×2 (05:54→17:12)
[2017-09-20 06:05] LABS: ADD MAN DIFF? NO
[2017-09-20 06:08] LABS: BASOPHIL # 0.1 10^3/ul (0.0-0.1); EOSINOPHILS # 0.5 10^3/ul (0.0-0.5); EOSINOPHILS % 5.2 % (0.0-7.0); HEMATOCRIT 34.4 % (37.0-47.0); HEMOGLOBIN 11.3 g/dl (12.0-16.0); LYMPHOCYTES # 4.5 10^3/ul (0.8-2.9); LYMPHOCYTES % 43.6 % (15.0-51.0); MEAN CORPUSCULAR HEMOGLOBIN 31.9 pg (29.0-33.0); MEAN CORPUSCULAR HGB CONC 32.8 g/dl (32.0-37.0); MEAN CORPUSCULAR VOLUME 97.2 fl (82.0-101.0); MEAN PLATELET VOLUME 8.7 fl (7.4-10.4); MONOCYTE # 0.8 10^3/ul (0.3-0.9); NEUTROPHIL # 4.3 10^3/ul (1.6-7.5); NEUTROPHILS % 41.6 % (39.0-77.0); PLATELET COUNT 548 10^3/UL (140-415); RED BLOOD COUNT 3.54 10^6/ul (4.20-5.40); RED CELL DISTRIBUTION WIDTH 16.3 % (11.5-14.5)
[2017-09-20 06:08] LABS: WHITE BLOOD COUNT 10.3 10^3/ul (4.8-10.8)
[2017-09-20 06:27] LABS: POSITIVE DIFF @See below
[2017-09-20 06:36] LABS: ALANINE AMINOTRANSFERASE 33 IU/L (13-69); ALBUMIN/GLOBULIN RATIO 0.83; ALKALINE PHOSPHATASE 106 IU/L (42-121); ANION GAP 14 (8-16); ASPARTATE AMINO TRANSFERASE 16 IU/L (15-46); BLOOD UREA NITROGEN 3 mg/dl (7-20); CALCIUM 7.4 mg/dl (8.4-10.2); CARBON DIOXIDE 16 mmol/L (21-31); CHLORIDE 120 mmol/L (97-110); CREATININE 0.61 mg/dl (0.44-1.00); GLUCOSE 131 mg/dl (70-220); SODIUM 147 mmol/L (135-144); TOTAL PROTEIN 6.6 g/dl (6.1-8.1)
[2017-09-20 07:16] LABS: MAGNESIUM 2.2 mg/dl (1.7-2.5)
[2017-09-20 07:16] LABS: PHOSPHORUS 2.5 mg/dl (2.5-4.9)
[2017-09-20] MEDS: ONDANSETRON 4 MG INJ IV ×2 (08:50→21:52)
[2017-09-20] MEDS: PHENYTOIN 100 MG CAP PO ×3 (08:51→21:54)
[2017-09-20] MEDS: SERTRALINE 100 MG TAB PO ×3 (08:51→21:55)
[2017-09-20] MEDS: clonAZEPAM 0.5 MG TAB PO ×2 (08:51→21:55)
[2017-09-20] MEDS: QUETIAPINE 100 MG TAB PO ×2 (08:51→21:54)
[2017-09-20] MEDS: GABAPENTIN 300 MG CAP PO ×3 (08:51→21:54)
[2017-09-20] MEDS: POTASSIUM CHLORIDE (SR) 20 MEQ TAB PO (08:51)
[2017-09-20] MEDS: SUCRALFATE (100 MG/ML) 10ML CUP PO ×2 (17:12→22:00)
[2017-09-21] MEDS: ONDANSETRON 4 MG INJ IV ×2 (03:56→10:17)
[2017-09-21] MEDS: PANTOPRAZOLE 40 MG INJ IV ×2 (05:23→17:50)
[2017-09-21 06:52] LABS: ADD MAN DIFF? NO
[2017-09-21 07:00] LABS: WHITE BLOOD COUNT 10.1 10^3/ul (4.8-10.8)
[2017-09-21 07:00] LABS: BASOPHIL # 0.1 10^3/ul (0.0-0.1); BASOPHILS % 0.9 % (0.0-2.0); EOSINOPHILS # 0.5 10^3/ul (0.0-0.5); EOSINOPHILS % 5.1 % (0.0-7.0); HEMATOCRIT 36.2 % (37.0-47.0); LYMPHOCYTES % 39.6 % (15.0-51.0); MEAN CORPUSCULAR HEMOGLOBIN 32.2 pg (29.0-33.0); MEAN CORPUSCULAR HGB CONC 33.1 g/dl (32.0-37.0); MEAN CORPUSCULAR VOLUME 97.1 fl (82.0-101.0); MEAN PLATELET VOLUME 8.9 fl (7.4-10.4); MONOCYTE # 0.9 10^3/ul (0.3-0.9); MONOCYTES % 8.9 % (0.0-11.0); NEUTROPHIL # 4.5 10^3/ul (1.6-7.5); NEUTROPHILS % 44.7 % (39.0-77.0); PLATELET COUNT 552 10^3/UL (140-415); RED BLOOD COUNT 3.73 10^6/ul (4.20-5.40); RED CELL DISTRIBUTION WIDTH 16.4 % (11.5-14.5)
[2017-09-21 07:21] LABS: MAGNESIUM 2.4 mg/dl (1.7-2.5)
[2017-09-21 07:21] LABS: PHOSPHORUS 1.7 mg/dl (2.5-4.9)
[2017-09-21 07:22] LABS: ALANINE AMINOTRANSFERASE 29 IU/L (13-69); ALBUMIN 3.2 g/dl (3.3-4.9); ALBUMIN/GLOBULIN RATIO 0.91; ALKALINE PHOSPHATASE 114 IU/L (42-121); ANION GAP 14 (8-16); ASPARTATE AMINO TRANSFERASE 14 IU/L (15-46); BLOOD UREA NITROGEN 4 mg/dl (7-20); CALCIUM 7.8 mg/dl (8.4-10.2); CARBON DIOXIDE 18 mmol/L (21-31); CHLORIDE 120 mmol/L (97-110); GLUCOSE 134 mg/dl (70-220); POTASSIUM 3.4 mmol/L (3.5-5.1); SODIUM 149 mmol/L (135-144); TOTAL PROTEIN 6.7 g/dl (6.1-8.1)
[2017-09-21] MEDS: ACETAMINOPHEN 325 MG TAB PO (09:07)
[2017-09-21] MEDS: SUCRALFATE (100 MG/ML) 10ML CUP PO ×4 (09:08→21:36)
[2017-09-21] MEDS: clonAZEPAM 0.5 MG TAB PO ×2 (09:11→21:36)
[2017-09-21] MEDS: PHENYTOIN 100 MG CAP PO ×3 (09:11→21:36)
[2017-09-21] MEDS: SERTRALINE 100 MG TAB PO ×3 (09:12→21:36)
[2017-09-21] MEDS: GABAPENTIN 300 MG CAP PO ×3 (09:12→21:36)
[2017-09-21] MEDS: QUETIAPINE 100 MG TAB PO ×2 (09:14→21:36)
[2017-09-21] MEDS: POTASSIUM PHOSPHATE 15 MM in SOD CHLORIDE 0.9% 250 ML IVPB (14:40)
[2017-09-22] MEDS: PANTOPRAZOLE 40 MG INJ IV (05:23)
[2017-09-22 06:42] LABS: ADD MAN DIFF? NO
[2017-09-22 06:47] LABS: BASOPHIL # 0.1 10^3/ul (0.0-0.1); BASOPHILS % 0.7 % (0.0-2.0); EOSINOPHILS # 0.6 10^3/ul (0.0-0.5); EOSINOPHILS % 3.7 % (0.0-7.0); HEMATOCRIT 35.7 % (37.0-47.0); HEMOGLOBIN 11.6 g/dl (12.0-16.0); LYMPHOCYTES # 4.1 10^3/ul (0.8-2.9); LYMPHOCYTES % 26.5 % (15.0-51.0); MEAN CORPUSCULAR HEMOGLOBIN 31.7 pg (29.0-33.0); MEAN CORPUSCULAR HGB CONC 32.5 g/dl (32.0-37.0); MEAN CORPUSCULAR VOLUME 97.5 fl (82.0-101.0); MONOCYTES % 6.4 % (0.0-11.0); NEUTROPHIL # 9.5 10^3/ul (1.6-7.5); NEUTROPHILS % 62.2 % (39.0-77.0); PLATELET COUNT 532 10^3/UL (140-415); RED BLOOD COUNT 3.66 10^6/ul (4.20-5.40); RED CELL DISTRIBUTION WIDTH 16.5 % (11.5-14.5)
[2017-09-22 06:47] LABS: WHITE BLOOD COUNT 15.3 10^3/ul (4.8-10.8)
[2017-09-22 07:39] LABS: ANION GAP 13 (8-16); BLOOD UREA NITROGEN 3 mg/dl (7-20); CALCIUM 7.6 mg/dl (8.4-10.2); CARBON DIOXIDE 19 mmol/L (21-31); CHLORIDE 119 mmol/L (97-110); CREATININE 0.61 mg/dl (0.44-1.00); GLUCOSE 96 mg/dl (70-220); POTASSIUM 3.3 mmol/L (3.5-5.1); SODIUM 148 mmol/L (135-144)
[2017-09-22 07:48] LABS: PHOSPHORUS 2.2 mg/dl (2.5-4.9)
[2017-09-22 07:48] LABS: MAGNESIUM 2.2 mg/dl (1.7-2.5)
[2017-09-22] MEDS: QUETIAPINE 100 MG TAB PO ×2 (09:35→20:50)
[2017-09-22] MEDS: POTASSIUM CHLORIDE (SR) 20 MEQ TAB PO (09:35)
[2017-09-22] MEDS: SUCRALFATE (100 MG/ML) 10ML CUP PO ×4 (09:35→20:50)
[2017-09-22] MEDS: SERTRALINE 100 MG TAB PO ×3 (09:35→20:50)
[2017-09-22] MEDS: GABAPENTIN 300 MG CAP PO ×3 (09:35→20:50)
[2017-09-22] MEDS: clonAZEPAM 0.5 MG TAB PO ×2 (09:35→20:50)
[2017-09-22] MEDS: PHENYTOIN 100 MG CAP PO ×3 (09:36→20:50)
[2017-09-22] MEDS: ACETAMINOPHEN 325 MG TAB PO (16:49)
[2017-09-23] MEDS: PANTOPRAZOLE (EC) 40 MG TAB PO ×3 (05:28→20:56)
[2017-09-23] MEDS ORDERED: PANTOPRAZOLE (EC) 40 MG TAB PO (06:00)
[2017-09-23 06:07] LABS: HEMATOCRIT 35.6 % (37.0-47.0); HEMOGLOBIN 11.8 g/dl (12.0-16.0); MEAN CORPUSCULAR HEMOGLOBIN 31.9 pg (29.0-33.0); MEAN CORPUSCULAR HGB CONC 33.1 g/dl (32.0-37.0); MEAN CORPUSCULAR VOLUME 96.2 fl (82.0-101.0); MEAN PLATELET VOLUME 8.9 fl (7.4-10.4); PLATELET COUNT 477 10^3/UL (140-415); RED CELL DISTRIBUTION WIDTH 16.4 % (11.5-14.5)
[2017-09-23 06:07] LABS: WHITE BLOOD COUNT 9.4 10^3/ul (4.8-10.8)
[2017-09-23 06:26] LABS: POSITIVE DIFF @See below
[2017-09-23 06:27] LABS: ADD MAN DIFF? YES
[2017-09-23 06:45] LABS: ANION GAP 11 (8-16); BLOOD UREA NITROGEN 6 mg/dl (7-20); CALCIUM 8.2 mg/dl (8.4-10.2); CARBON DIOXIDE 20 mmol/L (21-31); CHLORIDE 118 mmol/L (97-110); CREATININE 0.54 mg/dl (0.44-1.00); GLUCOSE 93 mg/dl (70-220); POTASSIUM 3.4 mmol/L (3.5-5.1); SODIUM 146 mmol/L (135-144)
[2017-09-23 09:19] LABS: ANISOCYTOSIS 1+ (0-0); BAND NEUTROPHILS % (M) 1 % (0-4); BASOPHILS % (M) 1 % (0-2); EOSINOPHILS % (M) 6 % (0-7); GIANT THROMBO% (M) 2 % (0-0); LYMPHOCYTES #M 4.5 10^3/ul (0.8-2.9); LYMPHOCYTES % (M) 48 % (15-51); MONOCYTE #M 0.8 10^3/ul (0.3-0.9); MONOCYTES % (M) 9 % (0-11); PLATELET ESTIMATE INCREASED; POIKILOCYTOSIS 2+ (0-0); POLYCHROMASIA 3+ (0-0); SEG NEUT #M 3.3 10^3/ul (1.6-7.5); SEGMENTED NEUTROPHILS (M) % 35 % (39-77); SMUDGE%M 4 % (0-0)
[2017-09-23] MEDS: POTASSIUM CHLORIDE (SR) 20 MEQ TAB PO (09:36)
[2017-09-23] MEDS: SUCRALFATE (100 MG/ML) 10ML CUP PO ×4 (09:36→20:55)
[2017-09-23] MEDS: SERTRALINE 100 MG TAB PO ×2 (09:37→20:56)
[2017-09-23] MEDS: GABAPENTIN 300 MG CAP PO ×3 (09:37→20:56)
[2017-09-23] MEDS: PHENYTOIN 100 MG CAP PO ×3 (09:37→20:56)
[2017-09-23] MEDS: QUETIAPINE 100 MG TAB PO (09:37)
[2017-09-23] MEDS: clonAZEPAM 0.5 MG TAB PO ×2 (09:37→20:56)
[2017-09-23 11:17] LABS: TROPONIN-I < 0.012 ng/ml (0.00-0.12)
[2017-09-23 13:32] LABS: BASOPHIL # 0.1 10^3/ul (0.0-0.1); BASOPHILS % 0.9 % (0.0-2.0); EOSINOPHILS # 0.5 10^3/ul (0.0-0.5); EOSINOPHILS % 4.8 % (0.0-7.0)
[2017-09-23 13:43] LABS: OSMOLALITY 290 mOsm/kg (280-295)
[2017-09-23 14:29] LABS: ERYTHROCYTE SEDIMENTATION RATE 31 mm/Hr (0-30)
[2017-09-23 18:35] LABS: C-REACTIVE PROTEIN 3.3 mg/dl (0.0-0.9)
[2017-09-23] MEDS: METHYLPREDNISOLONE 125 MG INJ IV (20:55)
[2017-09-24 07:18] LABS: ADD MAN DIFF? NO
[2017-09-24 07:23] LABS: WHITE BLOOD COUNT 12.1 10^3/ul (4.8-10.8)
[2017-09-24 07:23] LABS: BASOPHIL # 0.1 10^3/ul (0.0-0.1); BASOPHILS % 0.8 % (0.0-2.0); EOSINOPHILS # 0.1 10^3/ul (0.0-0.5); HEMATOCRIT 36.2 % (37.0-47.0); LYMPHOCYTES # 3.9 10^3/ul (0.8-2.9); LYMPHOCYTES % 31.8 % (15.0-51.0); MEAN CORPUSCULAR HGB CONC 33.1 g/dl (32.0-37.0); MEAN CORPUSCULAR VOLUME 96.5 fl (82.0-101.0); MEAN PLATELET VOLUME 8.9 fl (7.4-10.4); MONOCYTE # 0.7 10^3/ul (0.3-0.9); MONOCYTES % 6.1 % (0.0-11.0); NEUTROPHIL # 7.2 10^3/ul (1.6-7.5); NEUTROPHILS % 59.5 % (39.0-77.0); NUCLEATED RED BLOOD CELLS% 0.2 /100WBC (0.0-0.0); PLATELET COUNT 512 10^3/UL (140-415); RED BLOOD COUNT 3.75 10^6/ul (4.20-5.40); RED CELL DISTRIBUTION WIDTH 16.2 % (11.5-14.5)
[2017-09-24 07:47] LABS: ANION GAP 16 (8-16); BLOOD UREA NITROGEN 8 mg/dl (7-20); CALCIUM 8.4 mg/dl (8.4-10.2); CARBON DIOXIDE 19 mmol/L (21-31); CHLORIDE 117 mmol/L (97-110); CREATININE 0.65 mg/dl (0.44-1.00); GLUCOSE 101 mg/dl (70-220); POTASSIUM 4.5 mmol/L (3.5-5.1); SODIUM 147 mmol/L (135-144)
[2017-09-24] MEDS: QUETIAPINE 100 MG TAB PO (08:49)
[2017-09-24] MEDS: GABAPENTIN 300 MG CAP PO ×3 (08:49→22:06)
[2017-09-24] MEDS: SUCRALFATE (100 MG/ML) 10ML CUP PO ×4 (08:49→22:04)
[2017-09-24] MEDS: PANTOPRAZOLE (EC) 40 MG TAB PO ×2 (08:49→22:05)
[2017-09-24] MEDS: PHENYTOIN 100 MG CAP PO ×3 (08:49→22:06)
[2017-09-24] MEDS: clonAZEPAM 0.5 MG TAB PO ×2 (08:49→22:06)
[2017-09-24] MEDS: METHYLPREDNISOLONE 125 MG INJ IV ×2 (08:50→22:05)
[2017-09-24] MEDS: SERTRALINE 100 MG TAB PO ×2 (08:50→22:04)
[2017-09-24 12:45] LABS: FREE T3 3.12 pg/ml (2.77-5.27)
[2017-09-25] MEDS: QUETIAPINE 100 MG TAB PO ×2 (00:14→08:49)
[2017-09-25 07:27] LABS: ADD MAN DIFF? NO
[2017-09-25 07:37] LABS: WHITE BLOOD COUNT 11.8 10^3/ul (4.8-10.8)
[2017-09-25 07:37] LABS: BASOPHIL # 0.1 10^3/ul (0.0-0.1); BASOPHILS % 0.8 % (0.0-2.0); EOSINOPHILS % 0.2 % (0.0-7.0); HEMOGLOBIN 11.9 g/dl (12.0-16.0); LYMPHOCYTES # 3.3 10^3/ul (0.8-2.9); LYMPHOCYTES % 27.8 % (15.0-51.0); MEAN CORPUSCULAR HEMOGLOBIN 31.2 pg (29.0-33.0); MEAN CORPUSCULAR HGB CONC 32.2 g/dl (32.0-37.0); MEAN CORPUSCULAR VOLUME 97.1 fl (82.0-101.0); MEAN PLATELET VOLUME 9.1 fl (7.4-10.4); MONOCYTE # 0.5 10^3/ul (0.3-0.9); MONOCYTES % 3.9 % (0.0-11.0); NEUTROPHIL # 7.8 10^3/ul (1.6-7.5); NEUTROPHILS % 66.4 % (39.0-77.0); PLATELET COUNT 497 10^3/UL (140-415); RED BLOOD COUNT 3.81 10^6/ul (4.20-5.40); RED CELL DISTRIBUTION WIDTH 15.8 % (11.5-14.5)
[2017-09-25 08:01] LABS: ANION GAP 17 (8-16); BLOOD UREA NITROGEN 12 mg/dl (7-20); CALCIUM 8.4 mg/dl (8.4-10.2); CARBON DIOXIDE 20 mmol/L (21-31); CHLORIDE 114 mmol/L (97-110); CREATININE 0.57 mg/dl (0.44-1.00); GLUCOSE 114 mg/dl (70-220); POTASSIUM 4.5 mmol/L (3.5-5.1); SODIUM 146 mmol/L (135-144)
[2017-09-25] MEDS: SUCRALFATE (100 MG/ML) 10ML CUP PO ×2 (08:49→12:21)
[2017-09-25] MEDS: GABAPENTIN 300 MG CAP PO ×2 (08:49→12:21)
[2017-09-25] MEDS: PANTOPRAZOLE (EC) 40 MG TAB PO (08:49)
[2017-09-25] MEDS: SERTRALINE 100 MG TAB PO (08:49)
[2017-09-25] MEDS: PHENYTOIN 100 MG CAP PO ×2 (08:49→12:21)
[2017-09-25] MEDS: clonAZEPAM 0.5 MG TAB PO (08:49)
[2017-09-25] MEDS: METHYLPREDNISOLONE 125 MG INJ IV (08:50)
== END 2017-09-25 16:48 | disposition home health service (06) | DRG 101 ==
LOC: E/R 11:30 → PP2 15:29
PROC: 0DD68ZX Extraction of Stomach, Via Natural or Artificial Opening Endoscopic, Diagnostic (ICD-10-PCS; principal; 2017-09-18 14:30)
DX: G40.909 Epilepsy, unspecified, not intractable, without status epilepticus (principal); E87.0 Hyperosmolality and hypernatremia; E87.2 Acidosis; K20.8 Other esophagitis; R11.2 Nausea with vomiting, unspecified; D72.829 Elevated white blood cell count, unspecified; J44.9 Chronic obstructive pulmonary disease, unspecified; K29.70 Gastritis, unspecified, without bleeding; G47.00 Insomnia, unspecified; Z91.19 Patient's noncompliance with other medical treatment and regimen; F99 Mental disorder, not otherwise specified; F17.200 Nicotine dependence, unspecified, uncomplicated; M54.9 Dorsalgia, unspecified; G89.29 Other chronic pain; K20.9 Esophagitis, unspecified; K44.9 Diaphragmatic hernia without obstruction or gangrene; K22.719 Barrett's esophagus with dysplasia, unspecified; K21.0 Gastro-esophageal reflux disease with esophagitis; F41.9 Anxiety disorder, unspecified
CPT/HCPCS: 36415; 70553; 71045; 76642; 80048; 80053; 80061; 80185; 80307; 81001; 82150; 82533; 83036; 83690; 83735; 83930; 84100; 84132; 84439; 84443; 84481; 84484; 85025; 85610; 85651; 85730; 86140; 87081; 88305; 88312; 88313; 93005; 96374; 96375; 97162; 99285-25